=== PATIENT | male | born 1985 | race Caucasian/White ===

== ENCOUNTER 2019-12-08 16:26 | Inpatient (IN) | payer MEDICAID ==
[~2019-12-08] VITALS: Ht 188 cm; Wt 78.3 kg
[~2019-12-08 16:26] MED LIST: MOBIC7.5 MG PO
[2019-12-08 16:31] VITALS: BP 156/96
[2019-12-08 16:55] LABS: ABSOLUTE EOSINOPHILS 0.1 thou/uL (0.0-0.7); ABSOLUTE LYMPHOCYTES 1.5 thou/uL (0.8-5.3); ABSOLUTE MONOCYTES 0.7 thou/uL (0.0-1.2); ABSOLUTE NEUTROPHILS 2.3 thou/uL (1.6-8.1); BASOPHILS 1.1 %; EOSINOPHILS 1.8 %; HEMATOCRIT 39.6 % (42.0-52.0); HEMOGLOBIN 13.8 gm/dL (14.0-18.0); MCH 30.7 pg (26.0-34.0); MCHC 34.7 g/dL (28.0-37.0); MCV 88.4 fL (80.0-100.0); MONOCYTES 15.7 %; MPV 8.1 fl. (7.2-11.1); NUCLEATED RBCS 0 /100WBC; PLATELET COUNT* 188 thou/uL (150-400); POLYS 48.4 %; RBC 4.48 mil/uL (4.50-6.00); RDW-CV 13.8 % (10.5-14.5); WBC 4.7 thou/uL (4.0-11.0)
[2019-12-08 17:07] LABS: ALCOHOL < 10 mg/dL (<10)
[2019-12-08 17:08] LABS: ACETAMINOPHEN < 2 ug/mL (10-30)
[2019-12-08 17:17] LABS: CALCIUM 9.1 mg/dL (8.5-10.1); CREATININE 1.1 mg/dL (0.6-1.3); POTASSIUM 4.2 mmol/L (3.5-5.1)
[2019-12-08 17:21] LABS: ALBUMIN 4.2 g/dL (3.4-5.0); TOTAL BILIRUBIN 0.3 mg/dL (<0.1-1.0); TOTAL PROTEIN 7.8 g/dL (6.4-8.2)
[2019-12-08 19:16] VITALS: BP 124/58
[2019-12-08 21:31] VITALS: BP 105/60
[2019-12-08 22:00] VITALS: BP 103/65
[2019-12-08 23:49] VITALS: BP 93/59
[2019-12-09] VITALS (8 sets, daily range): BP systolic 95–129; BP diastolic 58–77
[2019-12-09 04:47] LABS: HEMATOCRIT 37.9 % (42.0-52.0); MCH 30.8 pg (26.0-34.0); MCHC 34.4 g/dL (28.0-37.0); MCV 89.7 fL (80.0-100.0); RBC 4.23 mil/uL (4.50-6.00); WBC 6.4 thou/uL (4.0-11.0)
[2019-12-09 05:00] LABS: ALBUMIN 3.3 g/dL (3.4-5.0); CALCIUM 7.9 mg/dL (8.5-10.1); CREATININE 0.8 mg/dL (0.6-1.3); POTASSIUM 4.1 mmol/L (3.5-5.1); TOTAL BILIRUBIN 0.4 mg/dL (<0.1-1.0); TOTAL PROTEIN 6.5 g/dL (6.4-8.2)
[2019-12-09 05:43] LABS: URINE BILIRUBIN NEGATIVE (Negative); URINE BLOOD NEGATIVE (Negative); URINE CLARITY CLEAR; URINE COLOR YELLOW; URINE GLUCOSE-RANDOM NEGATIVE (Negative); URINE KETONES NEGATIVE (Negative); URINE LEUKOCYTES-REFLEX NEGATIVE (Negative); URINE NITRITE-REFLEX NEGATIVE (Negative); URINE PROTEIN NEGATIVE (Negative); URINE SPECIFIC GRAVITY >= 1.030 (1.005-1.030); URINE UROBILINOGEN 0.2 E.U./dl (0.2-1.0)
[2019-12-09 05:45] LABS: AMP/METHAMP POSITIVE (Negative); BARBITURATES Negative (Negative); BENZODIAZEPINES Negative (Negative); COCAINE Negative (Negative); METHADONE Negative (Negative); OPIATES Negative (Negative); PCP Negative (Negative); THC Negative (Negative)
--- NOTE | 2019-12-09 10:14 | EKG ---
[place] [address] ELECTROCARDIOGRAM REPORT Name: RAMIN GUIDRY Room: [address] ADM IN .R.#: [id number] Admission: 12/08/19 Attend Phys: Geeta Pimentel, Discharge: Date of : 81 Date of Service: 12/08/19 1630 Report #: [id number] THIS REPORT FOR: //name// [facility] ED Test Date: 2019-12-08 Test Time: 16:30:07 Pat Name: RAMIN GUIDRY Department: Room: [facility] Gender: M [employer]: : 1985 Requested By: Maxim Suresh Order Number: [id number] MD: Alcides Corona Measurements Intervals [place] Rate: 119 P: 72 NE: 157 QRS: 80 QRSD: 90 T: 43 QT: 322 QTc: 454 Interpretive Statements Sinus tachycardia Probable left atrial enlargement Anterior infarct, old Compared to ECG 01/23/2009 11:17:37 Sinus rhythm no longer present Electronically Signed On 12-09-2019 10:14:22 CDT by Alcides Corona [email or web address] <ELECTRONICALLY SIGNED> By: Alcides Corona MD, [facility] 12/09/19 1014 1630 1630 Alcides Corona MD, [facility] /EPI
== END 2019-12-09 09:30 | disposition left against medical advice (07) | DRG 918 ==
LOC: M.ERS 16:26 → M.ICU 17:34 → M.TBA-ER 17:34 → M.ICU 19:00
PROVIDERS: Emergency Medicine Emergency Medical Services; ADMIT Internal Medicine; ATTEND Internal Medicine
DX: T43.621A Poisoning by amphetamines, accidental (unintentional), initial encounter (principal); F12.90 Cannabis use, unspecified, uncomplicated; Y92.89 Other specified places as the place of occurrence of the external cause; F17.210 Nicotine dependence, cigarettes, uncomplicated; Z20.828 Contact with and (suspected) exposure to other viral communicable diseases; Z53.29 Procedure and treatment not carried out because of patient's decision for other reasons; Z79.899 Other long term (current) drug therapy